=== PATIENT | female | born 1950 | race Caucasian/White ===

== ENCOUNTER 2017-06-29 16:29 | Emergency (ER) | payer BC, SELFPAY ==
[2017-06-29 18:23] VITALS: BP 159/82; PULSE 78; RESP 20; TEMP 37.7; O2SAT 99; BMI 60.5
--- NOTE | 2017-06-29 19:02 | HMH.EDUTC ---
[facility] [place] Clinical Impression: Influenza A Disposition: Home, Self-Care Condition on Discharge: Good Instructions: DI for Influenza -- Adult Additional Instructions: Rest, fluids Prescriptions: Brompheniramine/Pseudoephed/Dm [Bromfed DM Cough Syrup 5mL] 5 - 10 ml PO Q4HP PRN 10 Days #240 syrup PRN Reason: Cough methylPREDNISolone [Medrol] 4 mg PO DIRECTED 6 Days #1 tab.ds.pk Oseltamivir Phosphate [Tamiflu 75mg Capsule] 75 mg PO BID 5 Days #10 cap Time of Disposition: 19:05 Medical Decision Making - Medical Records Medical records reviewed: Yes: I reviewed the patient's medical records. Vital Signs: 06/29/17 18:23 Temperature 99.8 F H Temperature Source Oral Pulse Rate [Radial] 78 Respiratory Rate 20 Blood Pressure [Right Arm] 159/82 Blood Pressure Mean [Right Arm] 107 Blood Pressure Source [Right Arm] Automatic Cuff Blood Pressure Position [Right Arm] Sitting 02 Sat by Pulse Oximetry 99 Oxygen Delivery Method Room Air - Lab Data Lab results reviewed: Yes: I reviewed the patient's lab results. - [place] Inquiry Pt receiving controlled substance: No [facility] [place] - General Stated complaint: Body Aches, fever, Cough Time Seen by Provider: 06/29/17 18:02 Mode of Arrival: Ambulatory Source of Information: Patient Limitations: No Limitations HEENT Symptoms (Recalled from RN notes): Yes Resp Symptoms (Recalled from RN notes): Yes Skin Symptoms (Recalled from RN notes): No MS Symptoms (Recalled from RN notes): No Functional Status (Recalled from RN notes): N/A - History of Present Illness Provider Complaint: Body aches, fever, chills with acute onset 11 am this morning. Has been exposed to strep throat. No vomiting or diarrhea. - Related Data Previous Rx's Medication Instructions Recorded Brompheniramine/Pseudoephed/Dm 5 - 10 ml PO Q4HP PRN 10 Days #240 06/29/17 [Bromfed DM Cough Syrup 5mL] syrup Oseltamivir Phosphate [Tamiflu 75 mg PO BID 5 Days #10 cap 06/29/17 75mg Capsule] methylPREDNISolone [Medrol] 4 mg PO DIRECTED 6 Days #1 06/29/17 tab.ds.pk Allergies Allergy/AdvReac Type Severity Reaction Status Date / Time No Known Drug Allergies Allergy Unknown Unverified 05/07/17 14:27 [NKDA] - Worker's Comp Is this a Worker's Comp case?: No Is this an [facility] Worker's Comp?: No Is this a [place] Worker's Comp?: No [facility] History I have reviewed the patient's past medical history: Yes Medical History: Denies:: Cancer, Diabetes Mellitus Type 1, Diabetes Mellitus Type 2, MRSA Amputation: No Fractures: No - *Social History Educational Level: Completed Grade School Alcohol Intake: never - Psychiatric History Expresses thoughts of harming self/others: None Suicide Plan Description: No Plan ROS Obtained: Yes All systems reviewed & no additional complaints - Constitutional Constitutional: Reports body ache, Reports chills, Reports fever(s), Reports malaise Physical Exam - General General appearance: alert, in no apparent distress - Head Head exam: atraumatic, normocephalic, normal inspection - Eye Eye exam: Present: normal appearance, PERRL, EOMI - ENT ENT exam: Present: normal exam, normal oropharynx, mucous membranes moist, TM's normal bilaterally, normal external ear exam - Neck Neck exam: Present: normal inspection, full ROM, trachea midline. Absent: meningismus, lymphadenopathy - Chest Chest inspection: Present: normal inspection, symmetric chest wall rise. Absent: tenderness - Respiratory Respiratory exam: Present: normal lung sounds bilaterally. Absent: respiratory distress - Cardiovascular Cardiovascular exam: Present: regular rate, normal rhythm. Absent: JVD - Abdominal Exam Abdominal exam: Present: soft, normal bowel sounds. Absent: distention, tenderness, guarding - Extremities Exam Extremities exam: Present: normal inspection, full ROM, normal capillary refill. Absent: calf tenderness - Back Exam Back exam: Present:
[2017-06-29 19:05] VITALS: BP 159/82; PULSE 78; RESP 20; TEMP 37.7; O2SAT 99
--- NOTE | 2017-06-29 19:05 | ED_ITS ---
[facility] [place] Clinical Impression: Influenza A Disposition: Home, Self-Care Condition on Discharge: Good Instructions: DI for Influenza -- Adult Additional Instructions: Rest, fluids Prescriptions: Brompheniramine/Pseudoephed/Dm [Bromfed DM Cough Syrup 5mL] 5 - 10 ml PO Q4HP PRN 10 Days #240 syrup PRN Reason: Cough methylPREDNISolone [Medrol] 4 mg PO DIRECTED 6 Days #1 tab.ds.pk Oseltamivir Phosphate [Tamiflu 75mg Capsule] 75 mg PO BID 5 Days #10 cap Time of Disposition: 19:05 Medical Decision Making - Medical Records Medical records reviewed: Yes: I reviewed the patient's medical records. Vital Signs: 06/29/17 18:23 Temperature 99.8 F H Temperature Source Oral Pulse Rate [Radial] 78 Respiratory Rate 20 Blood Pressure [Right Arm] 159/82 Blood Pressure Mean [Right Arm] 107 Blood Pressure Source [Right Arm] Automatic Cuff Blood Pressure Position [Right Arm] Sitting 02 Sat by Pulse Oximetry 99 Oxygen Delivery Method Room Air - Lab Data Lab results reviewed: Yes: I reviewed the patient's lab results. - [place] Inquiry Pt receiving controlled substance: No [facility] [place] HPI - General Stated complaint: Body Aches, fever, Cough Time Seen by Provider: 06/29/17 18:02 Mode of Arrival: Ambulatory Source of Information: Patient Limitations: No Limitations HEENT Symptoms (Recalled from RN notes): Yes Resp Symptoms (Recalled from RN notes): Yes Skin Symptoms (Recalled from RN notes): No MS Symptoms (Recalled from RN notes): No Functional Status (Recalled from RN notes): N/A - History of Present Illness Provider Complaint: Body aches, fever, chills with acute onset 11 am this morning. Has been exposed to strep throat. No vomiting or diarrhea. - Related Data Previous Rx's Medication Instructions Recorded Brompheniramine/Pseudoephed/Dm 5 - 10 ml PO Q4HP PRN 10 Days #240 06/29/17 [Bromfed DM Cough Syrup 5mL] syrup Oseltamivir Phosphate [Tamiflu 75 mg PO BID 5 Days #10 cap 06/29/17 75mg Capsule] methylPREDNISolone [Medrol] 4 mg PO DIRECTED 6 Days #1 06/29/17 tab.ds.pk Allergies Allergy/AdvReac Type Severity Reaction Status Date / Time No Known Drug Allergies Allergy Unknown Unverified 05/07/17 14:27 [NKDA] - Worker's Comp Is this a Worker's Comp case?: No Is this an [facility] Worker's Comp?: No Is this a [place] Worker's Comp?: No [facility] History I have reviewed the patient's past medical history: Yes Medical History: Denies:: Cancer, Diabetes Mellitus Type 1, Diabetes Mellitus Type 2, MRSA Amputation: No Fractures: No - *Social History Educational Level: Completed Grade School Alcohol Intake: never - Psychiatric History Expresses thoughts of harming self/others: None Suicide Plan Description: No Plan ROS Obtained: Yes All systems reviewed & no additional complaints - Constitutional Constitutional: Reports body ache, Reports chills, Reports fever(s), Reports malaise Physical Exam - General General appearance: alert, in no apparent distress - Head Head exam: atraumatic, normocephalic, normal inspection - Eye Eye exam: Present: normal appearance, PERRL, EOMI - ENT ENT exam: Present: normal exam, normal oropharynx, mucous membranes moist, TM's normal bilaterally, normal external ear exam - Neck Nec
[2017-06-29 20:41] LABS: UTC Strep Screen (Rapid) Negative (Negative)
[2017-06-29 20:44] LABS: UTC Influenza A Antigen Positive (Negative); UTC Influenza B Antigen Negative (Negative)
== END 2017-06-29 19:07 | disposition home or self-care (01) ==
PROVIDERS: Emergency Provider Physician Assistant; Family Provider Family Medicine
DX: J10.1 Influenza due to other identified influenza virus with other respiratory manifestations (principal)
CPT/HCPCS: 87804; 87880; 99202

== ENCOUNTER → 2018-11-17 08:18 | Outpatient (CLI) | payer MEDICARE, BC, SELFPAY ==
--- NOTE | 2018-11-17 08:22 | MM_ITS ---
MM Dig screening mamm BI w/CAD CAD Screening COMPARISON: Digital mammograms with CAD 03/11/2012 INDICATION: There is no personal or family history of breast cancer TECHNIQUE: Standard CC and MLO images were obtained. R2 CAD reviewed. FINDINGS: The breasts are composed primarily of fat with minimal scattered fibroglandular densities in each breast. There are couple benign-appearing calcifications in each breast. There is no suspicious lesion and there are no suspicious microcalcifications. IMPRESSION: Fibrofatty parenchyma with no suspicious lesion seen BI-RADS Category: 2 Benign Finding(s) RECOMMENDED FOLLOW-UP: 1YR - 1 YEAR FOLLOW-UP (A letter has been sent to the patient regarding results of the study.)
== END ==
PROVIDERS: PCP Family Medicine; Visit Provider Family Medicine
DX: Z12.31 Encounter for screening mammogram for malignant neoplasm of breast (principal)
CPT/HCPCS: 77067

== ENCOUNTER 2020-04-13 09:51 | Outpatient (RCR) | payer MEDICARE, BC, SELFPAY ==
--- NOTE | 2020-04-13 14:55 | HMH.SLDYSPHA ---
Speech & Language Evaluation Speech/Language Dysphagia Evaluation Start: 04/13/20 11:22 Freq: ONCE Status: Active Protocol: Document 04/13/20 11:22 CMAY (Rec: 04/13/20 11:59 CMAY [id number]) Dysphagia Assess/Goals/Plan Assessment Date of Evaluation: 04/13/20 Evaluation Type Initial Certification Assessment/Problems Dysphagia Does Patient Qualify for Service Yes Qualify/Failure Comment Patient may qualify for ST services based on the results of today's evaluation. MBSS will be completed to determine if ST is warranted. Recommendations PHYSICIAN CERTIFICATION: The specified therapy services are required, authorized, and reviewed every 30 days. Diet Recommendations Normal Liquid Type Recommendations Normal/Thin SL Swallow Guidelines Standard Aspiration Prec. Dysphagia Swallow Precautions/Strategies Sitting Upright (90 deg),Small Bites and Sips Comment MBSS recommended. Plan Pt/Guardian verbally ack understanding Yes of dx/prognosis/goals G -code Required No Education Instructions provided Education provided to patient regarding recommended strategies to utilize include sitting upright at 90 degree angle for intake, remaining upright for at least 30 minutes following intake, taking small bites/sips, and liquid washes following trials of sticky/grainy foods. Pt/Caregiver able to recall information Able to recall/restate Reinforcement needed No Speech & Language HPI Language [place] Lang/Spoken in Home Estonian Therapy History Seen by other SL therapists No Other Specialists? Yes Who/When/Recommendations ENT approximately 30 years ago General Information General Current Food Consistancy Regular,Thin Liquids Dentition Good Dentition Oxygen Status Room Air Facial Symmetry Symmetrical Ability to Follow Directions Excellent Communication Ability No Impairment Dysphagia:Food Presentation Evaluation Food Type Pureed,Mechanical Soft,Regular ,Liquid,Pudding,Other Normal/Thin Liquid Response Coughing after swallow,Clears throat Pudding Consistency Liquid Response Residual on tongue Dysphagia Evaluation Pureed Food Residual on tongue,Clears Behavior Response throat Dysphagia Evaluation Mechanical Soft Residual on
== END 2020-04-13 09:55 | disposition home or self-care (01) ==
LOC: ST 09:51
PROVIDERS: PCP Family Medicine; Visit Provider Family Medicine
DX: R13.13 Dysphagia, pharyngeal phase (principal)
CPT/HCPCS: 92610

== ENCOUNTER → 2020-04-25 10:46 | Outpatient (CLI) | payer MEDICARE, BC, SELFPAY ==
--- NOTE | 2020-04-25 10:49 | FL_ITS ---
PROCEDURE: FL BARIUM SWALLOW MODIFIED CLINICAL INDICATION: DYSPHAGIA,PHARYNGEAL PHASE COMPARISON: No exams were available for comparison TECHNIQUE: Patient administered varying consistencies of barium contrast, while viewed in lateral position under real-time fluoroscopy with cine recording. FLUOROSCOPY TIME:1 minutes and 52 seconds The study was performed in conjunction with speech pathologist. Please see that report & recommendations. FINDINGS: Patient was given varying consistencies of barium. No penetration or aspiration is evident. Please see speech pathology report for recommendations.. IMPRESSION: Unremarkable modified barium swallow. Please see speech pathologist report and recommendations. Dictated by: Andrew Buenrostro MD 04/28/2020 11:28 Andrew Buenrostro MD in [place] 04/28/2020 11:28
--- NOTE | 2020-04-25 13:16 | HMH.SLMBS2 ---
Speech & Language Evaluation Speech/Language Mod Barium Swallow Start: 04/25/20 12:44 Freq: once Status: Complete Protocol: Document 04/25/20 12:44 HANNA (Rec: 04/25/20 13:16 HANNA [id number]) General Information General Current Food Consistancy Regular,Thin Liquids Dentition Good Dentition Oxygen Status Room Air Facial Symmetry Symmetrical Patient Orientation Person,Place,Time,Situation Ability to Follow Directions Excellent Communication Ability No Impairment MBS Recommendations Diet Dietary Recommendations Regular,Thin Liquids Treatment/Strategies Treatment Recommendation Pharyngeal Resistive Exer, Compens. Strategy Educat. Strategy/Precaution Recommend Sitting Upright (90 deg),Small Bites and Sips,Alternate Liquids/Solids Mod Barium Swallow Impressions Summary and Impressions Oral Phase Impression No Impairment (WFL) Oral Phase Summary Ms. Rojas was given the following consistencies: thins via straw and open cup, pudding, mechanical soft, regular, mixed, and pill with thin wash. No oral phase impairments were noted. Pharyngeal Phase Impression Minimal Impairment Pharyngeal Phase Summary Flash penetration noted with large volume of thins during pill intake. Speech/Language MBS Assessment/Goals/Plan Assessment Date of Evaluation: 04/25/20 Evaluation Type Initial Certification Assessment/Problems Dysphagia Does Patient Qualify for Service No Qualify/Failure Comment Ms. Rojas was given compensatory strategies and laryngeal elevation exercises to promote increase in laryngeal strength. Recommendations PHYSICIAN CERTIFICATION: The specified therapy services are required, authorized, and reviewed every 30 days. Diet Recommendations Normal Liquid Type Recommendations Normal/Thin Plan Pt/Guardian verbally ack understanding Yes of dx/prognosis/goals G -code Required No Mod Barium Swallow Setup Exam Setup Radiologist Andrew Buenrostro Level of Consciousness Awake,Alert,Appropriate Position (degrees) 90 Mod Barium Swallow-Lat View Textures Lateral View Food Presentation Thin Liquid via Cup,Thin Liquid via Straw,Ground Food- Regular,Barium Tablet,Regular
== END ==
PROVIDERS: PCP Family Medicine; Visit Provider Family Medicine
DX: R13.13 Dysphagia, pharyngeal phase (principal)
CPT/HCPCS: 70371; 92611

== ENCOUNTER → 2022-01-08 12:56 | Outpatient (CLI) | payer MEDICARE, SELFPAY | PROVIDERS: PCP Nurse Practitioner Family; Visit Provider Nurse Practitioner Family | DX: Z20.822 Contact with and (suspected) exposure to COVID-19 (principal); R05.1 Acute cough | CPT/HCPCS: C9803; U0003; U0005 ==

== ENCOUNTER → 2022-02-08 10:47 | Outpatient (CLI) | payer MEDICARE, BC, SELFPAY ==
--- NOTE | 2022-02-08 10:51 | MM_ITS ---
PROCEDURE INFORMATION: Exam: MG Bilateral Screening 3D Mammography Exam date and time: 02/08/2022 10:49 AM Age: 71 years old Clinical indication: Screening mammogram TECHNIQUE: Imaging protocol: Bilateral Screening tomosynthesis and 2D mammography including computer-aided detection (CAD) when performed. COMPARISON: 1. MG DIG MAMM-SCREEN LEONCIO 11/17/2018 8:38 AM 2. MG DMSB DIGITAL MAMM-SCREEN BILATERAL 03/11/2012 4:09 PM 3. MG DMSB DIGITAL MAMM-SCREEN BILATERAL 03/07/2011 8:12 AM 4. MG DIGMAMMDX MAMMOGRAM DX-ROBOTICS TESTING TECHNICIAN N/C 07/19/2009 8:41 AM FINDINGS: MAMMOGRAPHY: Breast composition: There are scattered areas of fibroglandular density. Mass: None. Architectural distortion: No new or suspicious architectural distortion. Calcifications: No new or suspicious calcifications are present Asymmetric density: No new or suspicious asymmetric density is present Skin thickening: None. Axillary adenopathy: None. IMPRESSION: No mammographic evidence of malignancy. Recommend annual screening mammography unless otherwise clinically indicated. ASSESSMENT: BI-RADS category 1: Negative
== END ==
PROVIDERS: PCP Nurse Practitioner Family; Visit Provider Obstetrics & Gynecology Gynecology
DX: Z12.31 Encounter for screening mammogram for malignant neoplasm of breast (principal)
CPT/HCPCS: 77063; 77067

== ENCOUNTER → 2022-02-15 08:48 | Outpatient (CLI) | payer MEDICARE, BC, SELFPAY ==
--- NOTE | 2022-02-15 08:51 | XR_ITS ---
FINAL REPORT TECHNIQUE: Bone mineral density was calculated of the lumbar spine and hip. CLINICAL HISTORY: post menopausal FINDINGS: DEXA BONE DENSITY AXIAL SKELETON Using L1-4, the bone mineral density of the spine is 1.086 g/cm2, corresponding to T-score of 0.4. Using the left hip, the bone mineral density of the femoral neck is 0.925 g/cm2, corresponding to a T-score of -0.1. NOTE: T-score: Standard deviation compared with peak bone mass of young adult mean. *Following the recommendations of the International Society of Bone densitometry, classification of hip BMD is based on the lower of two T-scores; total hip or femoral neck. IMPRESSION: Normal bone mineral density of the lumbar spine and hip. FRAX 10 year fracture risk is 0.8% for a hip fracture and 8.4% for a major osteoporotic fracture. Reviewed, Interpreted and Dictated by Bautista Reynolds MD Transcribed by Farideh Cuadra Authenticated and [facility]
== END ==
PROVIDERS: PCP Nurse Practitioner Family; Visit Provider Nurse Practitioner Family
DX: Z78.0 Asymptomatic menopausal state (principal)
CPT/HCPCS: 77080

== ENCOUNTER → 2022-03-14 14:03 | Outpatient (CLI) | payer MEDICARE, BC, SELFPAY ==
--- NOTE | 2022-03-14 14:08 | XR_ITS ---
FINAL REPORT CLINICAL HISTORY: foot pain FINDINGS: Right foot Three views were obtained. There is no acute fracture or dislocation. There are mild degenerative changes. No soft tissue abnormality is identified. IMPRESSION: No acute process. Reviewed, Interpreted and Dictated by Joseph Jones III, MD Transcribed by Sho Dove Authenticated and [facility]
--- NOTE | 2022-03-14 14:08 | XR_ITS ---
FINAL REPORT CLINICAL HISTORY: foot pain FINDINGS: Left foot Three views were obtained. There is no acute fracture or dislocation. There are mild degenerative changes. There is a plantar calcaneal spur. No soft tissue abnormality is identified. IMPRESSION: No acute process. Reviewed, Interpreted and Dictated by Joseph Jones III, MD Transcribed by Sho Dove Authenticated and [facility]
== END ==
PROVIDERS: PCP Nurse Practitioner Family; Visit Provider Nurse Practitioner Family
DX: M79.672 Pain in left foot (principal); M79.671 Pain in right foot
CPT/HCPCS: 73630

== ENCOUNTER → 2022-03-24 10:10 | Outpatient (CLI) | payer MEDICARE, BC, SELFPAY ==
--- NOTE | 2022-03-24 10:11 | MR_ITS ---
FINAL REPORT CLINICAL HISTORY: CHRONIC ANTERIOR TO LATERAL ANKLE PAIN. NKI. PT STATES FEELS LIKE THEIR IS KNOTS IN HER FOOT/ ANKLE. PAIN WITH WALKING. FINDINGS: Multiplanar MR imaging of the left ankle was performed without contrast. There is mild fusiform enlargement of the distal Achilles tendon. The plantar fascia is intact. There is mild linear signal in the substance of the tendon consistent with partial tear. The bony structures are intact without evidence of fracture, bone bruise or marrow edema. A small osteochondral lesion in the lateral talar dome measures 3 mm. The ligaments are intact without evidence of injury. The remaining tendons about the ankle are intact. No significant joint effusion is seen. The musculature is intact. There is no evidence of soft tissue mass or cyst. There is mild subcutaneous soft tissue edema particularly over the medial foot. 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 Small osteochondral lesion in the lateral talar dome. Reviewed, Interpreted and Dictated by Donato Martino MD Transcribed by Miek Smallwood Authenticated and . [facility]
--- NOTE | 2022-03-24 10:11 | MR_ITS ---
FINAL REPORT CLINICAL HISTORY: CHRONIC ANTERIOR TO LATERAL FOOT PAIN. NKI. PT STATES FEELS LIKE THEIR IS KNOTS IN HER FOOT. PAIN WITH WALKING. FINDINGS: Multiplanar MR imaging of the left foot was performed without contrast. The bony structures are intact without evidence of fracture, bone bruise or marrow edema. The flexor and extensor tendons are intact. The musculature is intact. The plantar aponeurosis is intact. No soft tissue mass or cyst is identified. There is mild soft tissue edema over the dorsum of the foot. IMPRESSION: Mild soft tissue edema over the dorsum of the foot. Reviewed, Interpreted and Dictated by Donato Martino MD Transcribed by Mike Smallwood Authenticated and [facility]
== END ==
PROVIDERS: PCP Nurse Practitioner Family; Visit Provider Nurse Practitioner Family
DX: S93.402A Sprain of unspecified ligament of left ankle, initial encounter (principal); M79.672 Pain in left foot; R60.0 Localized edema
CPT/HCPCS: 73718; 73721

== ENCOUNTER 2022-05-02 10:00 | Outpatient (RCR) | payer MEDICARE, BC, SELFPAY ==
--- NOTE | 2022-02-12 10:56 | HMH.PTOPEV ---
PT Outpatient Evaluation Rehab PT Outpatient Evaluation Start: 02/12/22 10:41 Freq: Status: Active Protocol: Document 02/12/22 10:41 MILE (Rec: 02/12/22 10:56 MILE [id number]) E-signed By Luiz Phillips, PT Outpatient Therapy Subjective History Subjective History Pt reports h/o chronic left foot/ankle swelling for years, and reports left foot pain for a couple months. Pt reports localized medial aspect left mid foot area pain , as well as referred pain into medial aspect left aguirre/ calf area. Pt reports recent purchase and use of custom orthotics and walking sneakers have improved left foot pain severity. Chief Complaint Pain,Swelling Symptom Type Ache,Dull Symptoms Relieved By Rest/Positioning Symptoms Aggravated By Standing,Physical Activity, Walking Prior Functional Limitations Housework,Standing,Walking Current Functional Limitations Housework,Standing,Walking Symptom Description Constant but Variable Level of pain today (0-10) 4 Pain scale - at its best (0-10) 3 Pain scale - at its worst (0-10) 6 Ankle/Foot Eval Gait Observation General Gait Pattern Observation Antalgic Gait Palpation Tenderness left Ankle/Foot Palpation Findings Tenderness Ankle/Foot Palpation Overall Comment 3/4 post. tib insertion, 3/4 post. tib mm belly and tendon ROM Ankle/Foot Dorsiflexion w/Knee Extended 0-11 Active Range Motion (degrees) Ankle/Foot Plantar Flexion Active Range 0-50 of Motion (degrees) Ankle/Foot Eversion Active Range of 0-11 Motion (degrees) Ankle/Foot Inversion Active Range of 0-45 Motion (degrees) MMT Ankle Dorsiflexion Strength Grade 4 Good Ankle Plantarflexion Strength Grade 4 Good Foot Eversion Strength Grade 4 Good Foot Inversion Strength Grade 4- Good- Outpatient Therapy Assessment Impairments Problems/Impairmments Palpation Tenderness,Impaired Range of Motion,Impaired Strength,Impaired Gait Pattern ,Impaired Walking,Impaired Standing,Impaired Household Care,Increased Edema, Subjective C/O Pain,Impaired Self Care/Self Management Prognosis Rehab Potential Good Clinical Impression Consisten
--- NOTE | 2022-03-27 13:55 | HMH.RHREAS ---
Rehab Reassessment Rehab OP Re-assessment Start: 03/27/22 13:46 Freq: Status: Active Protocol: Document 03/27/22 13:46 MILE (Rec: 03/27/22 13:54 MILE [id number]) E-signed By Luiz Phillips, PT Rehab Re-assessment Subjective Subjective Pt reports 80% improvement in left ankle/LE swelling, pain, and overall function since I eval, and also reports 0/10 left LE pain on VAS this pm Objective Objective Notes AROM: LEFT ANKLE DF 0-11, PF 0 -51, INV 0-55, EVR 0-21 MMT: LEFT ANKLE DF 4+-5/5, PF 5/5, INV 4+/5, EVR 4+/5 TTP: POST TIB TENDON LEFT 06/23 Assessment Progress Assessment Progressing as Expected Assessment Notes SIGNIFICANT IMPROVEMENT IN ROM , STRENGTH, AND TTP Patient goals met STG'S 01/26 LTG'S 11/25 Goals Not Met LTG'S 06/28 Plan Plan Pt to continue w/skilled P.T. to make further improvements in left ankle swelling (see CLINICAL SERVICES MANAGER notes), strength, and TTP to allow for optimal function Frequency of Therapy 1-2x/wk Duration of therapy 2-4wks Time and Billing Re-Eval Time 12 Re-Eval Billing Units 1 PHYSICIAN CERTIFICATION: I certify the specified therapy services for Obdulia Rojas (Meg) are required, authorized, and reviewed every 30 days.
== END 2022-05-02 10:05 | disposition home or self-care (01) ==
LOC: PT 10:00
PROVIDERS: PCP Nurse Practitioner Family; Visit Provider Nurse Practitioner Family
DX: M79.672 Pain in left foot (principal)
CPT/HCPCS: 97010; 97014; 97035; 97110; 97140; 97163; 97164; 97760; G0283

== ENCOUNTER 2024-07-13 09:22 | Outpatient (CLI) | payer MEDICARE, BC, SELFPAY ==
--- NOTE | 2024-07-13 09:26 | XR_ITS ---
FINAL REPORT TECHNIQUE: Bone mineral density was calculated of the lumbar spine and hip. CLINICAL HISTORY: SCREENING COMPARISON: None FINDINGS: Using L1-4, the bone mineral density of the spine is 1.104 g/cm2, corresponding to T-score of 0.5. Using the left hip, the bone mineral density of the femoral neck is 0.850 g/cm2, corresponding to a T-score of -0.8. Utilizing the right hip, the bone mineral density of the femoral neck is 0.691 g/cm?, corresponding to a T-score of -1.4. NOTE: T-score: Standard deviation compared with peak bone mass of young adult mean. *Following the recommendations of the International Society of Bone densitometry, classification of hip BMD is based on the lower of two T-scores; total hip or femoral neck. IMPRESSION: Diminished bone mineral density of the right hip consistent with osteopenia. Normal bone mineral density of the lumbar spine and left hip. Reviewed, Interpreted and Dictated by Joseph Jones III, MD Transcribed by Rasheeda Cohen Authenticated and [facility]
--- NOTE | 2024-07-13 09:26 | MM_ITS ---
PROCEDURE INFORMATION: Exam: MG Bilateral Screening 3D Mammography Exam date and time: 07/13/2024 9:45 AM Age: 73 years old Clinical indication: Screening examination TECHNIQUE: Imaging protocol: Bilateral Screening tomosynthesis and 2D mammography including computer-aided detection (CAD) when performed. COMPARISON: 1. MG MM DIG SCREENING MAMM BI W/CAD 02/08/2022 10:49 AM 2. MG DIG MAMM-SCREEN LEONCIO 11/17/2018 8:38 AM FINDINGS: MAMMOGRAPHY: Breast composition: There are scattered areas of fibroglandular density. Mass: Indistinct 0.7 cm mass in the right breast lower inner quadrant, approximately 5 cm from the nipple. Questionable indistinct mass measuring 1.3 cm in the right breast upper outer quadrant, best seen on the craniocaudal projection, approximately 5 cm from the nipple. Architectural distortion: None. Calcifications: No suspicious calcifications. Asymmetric density: None. Skin thickening: None. Axillary adenopathy: None. IMPRESSION: Patient to be recalled for spot compression views of the right breast in the CC and MLO projections, a full 90 degree lateral view, and right breast ultrasound for further evaluation of 2 right breast masses, in the lower inner quadrant and in the upper-outer quadrant. ASSESSMENT: BI-RADS Category 0: Incomplete- Need Additional Imaging Evaluation.
== END 2024-07-13 23:59 | disposition home or self-care (01) ==
LOC: RAD 09:24
PROVIDERS: PCP Nurse Practitioner Family; Visit Provider Nurse Practitioner Family
DX: Z78.0 Asymptomatic menopausal state (principal); Z12.31 Encounter for screening mammogram for malignant neoplasm of breast; R92.8 Other abnormal and inconclusive findings on diagnostic imaging of breast
CPT/HCPCS: 77063; 77067; 77080

== ENCOUNTER 2024-07-28 13:15 | Outpatient (CLI) | payer MEDICARE, BC, SELFPAY ==
--- NOTE | 2024-07-28 13:22 | MM_ITS ---
PROCEDURE INFORMATION: Exam: US Right Breast, Complete MG Right Diagnostic Breast Tomosynthesis Exam date and time: 07/28/2024 1:45 PM Age: 73 years old Clinical indication: Recall on the basis of the screening mammogram 07/13/2024 for: Indistinct 0.7 cm mass in the right breast lower inner quadrant, approximately 5 cm from the nipple. Questionable indistinct mass measuring 1.3 cm in the right breast upper outer quadrant, best seen on the craniocaudal projection, approximately 5 cm from the nipple. TECHNIQUE: Imaging protocol: Complete ultrasound of all four quadrants of the right breast and the retroareolar regions, including ultrasound of the axilla when performed. Right Diagnostic tomosynthesis and 2D mammography including computer-aided detection (CAD) when performed. Unilateral or bilateral exam. COMPARISON: MG MM DIG SCREENING MAMM BI W/CAD 07/13/2024 9:45 AM FINDINGS: MAMMOGRAPHY: Breast composition: There are scattered areas of fibroglandular density based on the most recent screening mammogram report. Breast mammogram findings: Spot compression in the craniocaudad view shows: in the inner breast, middle 3rd, and irregular 0.8 cm asymmetry with probable architectural distortion; and in the outer breast middle 3rd, irregular 1.3 cm asymmetry with questionable architectural distortion. Spot compression in the MLO upper breast demonstrates no persistent findings. No spot compression in the MLO lower breast, though 2D true lateral does not demonstrate focal findings to correspond to the abnormalities in the craniocaudad projection. ULTRASOUND: Breast ultrasound findings: Right sonography, all 4 quadrants, retroareolar and axilla. At 4 o'clock 5 cm from the nipple, irregular solid mass which is taller than wide measuring 0.5 x 0.4 x 0.5 cm with related Doppler flow which appears to correspond to the mammographic medial asymmetry with architectural distortion. At 10 o'clock 5 cm from the nipple, lobulated hypoechoic mass with thin avascular septations measuring 0.8 x 0.4 x 0.6 cm which may correspond to the mammographic lateral asymmetry. No other sonographic findings demonstrated. Sonographically unremarkable axillary lymph node. IMPRESSION: See comments Highly suspicious mass on the right at 4 o'clock, recommend ultrasound-guided biopsy with correlation to ensure that sonographically placed clip corresponds to the mammographic finding. Recommend ultrasound guided biopsy of probable complicated sonographic cyst at 10 o'clock, with clip placement and assessing whether the sonographic finding corresponds to the mammographic asymmetry in the lateral breast. If not, advise additional mammographic spot compression in MLO and consideration for adding an MRI (after above recommended biopsies). ASSESSMENT: BI-RADS Category 5: Highly suggestive of malignancy.
== END 2024-07-28 23:59 | disposition home or self-care (01) ==
LOC: RAD 13:17
PROVIDERS: PCP Nurse Practitioner Family; Visit Provider Nurse Practitioner Family
DX: R92.8 Other abnormal and inconclusive findings on diagnostic imaging of breast (principal); N63.14 Unspecified lump in the right breast, lower inner quadrant; N63.11 Unspecified lump in the right breast, upper outer quadrant
CPT/HCPCS: 76641; 77061; 77065; G0279

== ENCOUNTER 2024-08-10 09:01 | Outpatient (CLI) | payer MEDICARE, BC, SELFPAY ==
--- NOTE | 2024-08-10 09:05 | US_ITS ---
FINAL REPORT CLINICAL HISTORY: ABNORMAL MAMM MASS - DR.ALEX SCHMIDT - RT BREAST - 4:00 AND 10:00 MAMMOTOME USED FOR BOTH AREAS FINDINGS: ULTRASOUND-GUIDED RIGHT BREAST CORE BIOPSY, biopsy 1 of 2 with lesion located at 4:00. HISTORY: Abnormal mammogram and ultrasound right breast TECHNIQUE: The right breast was prepped in a routine sterile fashion and locally anesthetized with 1% lidocaine. An 11-gauge vacuum-assisted hand-held device was utilized. The needle was positioned posterior to the lesion. Multiple vacuum assisted core samples were obtained. Lesion was noted to be significantly smaller following biopsy. A biopsy marker clip was deployed in satisfactory position. A post biopsy mammogram was performed and dictated separately. Limited postbiopsy images showed no evidence of significant hemorrhage. Marker clip is noted to be in satisfactory position. Procedure was well tolerated. IMPRESSION: 1. Technically successful guided vacuum assisted core biopsy of right breast lesion as above. 2. Biopsy marker clip deployed Histopathology results reveal invasive lobular carcinoma.. Pathology is concordant with mammographic findings. Medical and surgical oncologic follow-up is recommended. ULTRASOUND-GUIDED RIGHT BREAST CORE BIOPSY, biopsy 2 of 2 directed toward a lesion at 10:00. HISTORY: Abnormal ultrasound and mammogram TECHNIQUE: The right breast was prepped in a routine sterile fashion and locally anesthetized with 1% lidocaine. An 11-gauge vacuum-assisted hand-held device was utilized. The needle was positioned posterior to the lesion. Multiple vacuum assisted core samples were obtained. Lesion was noted to be significantly smaller following biopsy. A biopsy marker clip was deployed in satisfactory position. A post biopsy mammogram was performed and dictated separately. Limited postbiopsy images showed no evidence of significant hemorrhage. Marker clip is noted to be in satisfactory position. Procedure was well tolerated. IMPRESSION: 1. Technically successful guided vacuum assisted core biopsy of right breast lesion as above. 2. Biopsy marker clip deployed Histopathology results reveal proliferative fibrocystic changes without atypia or carcinoma. Pathology is concordant with mammographic findings. Recommendation: Although this lesion at 10:00 would typically undergo 6-month imaging follow-up, patient will need medical and surgical oncologic treatment for the separate biopsied lesion located at 4:00. Ultimately a follow-up mammogram and ultrasound is recommended for continued surveillance of the 10:00 lesion in 6 to 12 months if patient undergoes breast conservation treatment. Authenticated and ERN
--- NOTE | 2024-08-10 09:06 | MM_ITS ---
FINAL REPORT CLINICAL HISTORY: S/P BIOPSY , CLIP PLACEMENT FINDINGS: MAMMOGRAM RIGHT 2D TECHNIQUE: Standard digital 2D views COMPARISON: 07/28/2024 DENSITY: There are scattered areas of fibroglandular density FINDINGS: Post biopsy marker clips are noted in satisfactory position. Postbiopsy changes are noted. The biopsy marker clip in the right lower outer quadrant corresponds to lesion which was demonstrated to be positive on pathology. IMPRESSION: Biopsy marker clips in good position ASSESSMENT: Post procedure mammogram for marker placement Medical and surgical oncologic follow-up will be needed for management of lesion located at 4:00 given findings of invasive lobular carcinoma. Although the lesion at 10:00 would typically undergo 6-month imaging follow-up, patient will need medical and surgical oncologic treatment for the separate biopsied lesion located at 4:00. Ultimately a follow-up mammogram and ultrasound is recommended for continued surveillance of the 10:00 lesion in 6 to 12 months if patient undergoes breast conservation treatment. Authenticated and ERN
== END 2024-08-10 23:59 | disposition home or self-care (01) ==
LOC: RAD 09:02
PROVIDERS: PCP Nurse Practitioner Family; Visit Provider Nurse Practitioner Family
DX: R92.8 Other abnormal and inconclusive findings on diagnostic imaging of breast (principal); N63.11 Unspecified lump in the right breast, upper outer quadrant; N63.14 Unspecified lump in the right breast, lower inner quadrant
CPT/HCPCS: 19083; 77065; C2618

== ENCOUNTER 2025-02-15 09:47 | Outpatient (CLI) | payer MEDICARE, BC, SELFPAY ==
--- OUTSIDE RECORDS SUMMARY | 2024-07-13 05:00 | XMS_ITS ---
Author Organization [facility] Address [address] [facility] [address] [facility] [address] [place] [address] Care Team Providers Care Kitchen Porter Name Role Phone Maranda Ann Primary Care Provider MARANDA ANN Unavailable Unavaila ble REASON FOR VISIT Labs Encounters Encounter Location Date Provider Diagnosis [facility] [address] [place] [address] [place] [address] 07/13/2024 Maranda Ann Plan Of Treatment No Information Progress Notes * Rosana ELLISDOB:1950 (74 yo F)Acc No.[id number]:07/13/2024 LABS Patient: Rosana PRINCE Provider: REFUGIO Mcdonald :1950 A ge:73 Y S ex:Female Date:07/13/2024 Address:[address] [place], [id number] Subjective: * Chief Complaints: * 1 . Labs. * Medical History: Objective: * Vitals: Assessment: Plan: * Treatment: * * Electronic signature of Heidi Ann APRN on 02/15/2025 at 09:51 AM EDT Sign off status: Pending * Provider: REFUGIO Mcdonald Date: 0 07/13/2024 Generated for Printi ng/Faxing/eTransmitting on: 0 02/15/2025 09:51 AM EDT
--- OUTSIDE RECORDS SUMMARY | 2024-08-22 17:30 | XMS_ITS ---
Author Organization [facility] Address [address] [facility] [address] [address] Care Team Providers Care Wardrobe Coordinator Name Role Phone Maranda Ann Primary Care Provider MARANDA ANN Unavailable Unavaila ble Migration, Provider Unavailable Unavailable REAS[facility]ISIT [facility] Conversion Encounter Medications Medication SIG (Take, Route, Frequency, Duration) Notes Start Date End Date Status Lisinopril 10 MG 1 tab(s) orally once a day; Duration: 90 days Active Venlafaxine HCl ER 75 MG 1 cap(s) orally once a day; Duration: 90 days Active Encounters Encounter Location Date Provider Diagnosis [facility]hnaz [facility]ON [address] [place] [address] 08/22/2024 Provider Migration HTN (hypertension), benign I10 and PIERRE (generalized anxiety disorder) F41.1 Assessments Encounter Date Diagnosis (ICD Code) Assessment Notes Treatment Notes Treatment Clinical Notes Section Notes 08/22/2024 HTN (hypertension), benign (ICD-10 - I10) 08/22/2024 PIERRE (generalized anxiety disorder) (ICD-10 - F41.1) Plan Of Treatment Medication Medication Name Sig Start Date Stop Date Notes Lisinopril 10 MG 1 tab(s) orally once a day; Duration: 90 days Venlafaxine HCl ER 75 MG 1 cap(s) orally once a day; Duration: 90 days Progress Notes * Rosana ELLISDOB:1950 (74 yo F)Acc No.[id number]:08/22/2024 Patient: Rosana PRINCE Provider: Mago horne Migration :1950 A ge:73 Y S ex:Female Date:08/22/2024 Address:[address] [place], [place] [id number] Pcp:Maranda Ann Subjective: * Chief Complaints: * 1 . [facility] Conversion Encounter. * Medical History: Objective: * Vitals: Assessment: * Assessment: 1. H TN (hypertension), benign - I10 2 . G AD (generalized anxiety disorder) - F41.1 Plan: * Treatment: 2. G AD (generalized anxiety disorder) Refill Venlafaxine HCl ER Capsule Extended Release 24 Hour, 75 MG, 1 cap(s), orally, once a day, 90 days, 90, Refills 3. * * Electronic signature of Prov ider Migration on 02/15/2025 at 09:50 AM EDT Sign off status: Pending * Provider: Mago horne Migration Date: 0 08/22/2024 Generated for Arnaud farah/Melina/Georgeitting on: 0 02/15/2025 09:50 AM EDT
--- OUTSIDE RECORDS SUMMARY | 2025-02-15 09:50 | XMS_ITS | Encounter Summary ---
Author Organization Healthcare Address [address] [place] [address] Care Team Providers Care Grouter Helper Name Role Phone Maranda Ann WELDER FITTER Primary Care Provider +1- [phone] Encounter Details Date Type Department Care Team (Late st Contact Info) Description 07/28/2024 Orders Only External Location [address] [place] [address] Maranda Ann, WELDER FITTER [facility] [facility] [address] [place], [place] [id number] Social History Tobacco Use Types Packs/Day Years Used Date Smoking Tobacco: Never Alcohol Use Standard Drinks/Week Comments Yes 0 (1 standard drink = 0.6 oz pur e alcohol) Comments Unknown Sex and Gender Information Value Date Recorded Sex Assigned at Not on file Legal Sex Female 8:01 PM EDT Gender Identity Not on file Sexual Orientation Not on file documented as of this encounter Plan of Treatment Upcoming Encounters Date Type Department Care Team (Late st Contact Info) Description 04/19/2025 8:30 AM EST Appointment [facility] [place] [address] [address] Building [address] [place] [address] 04/19/2025 9:30 AM EST Office Visit [facility] [address] [facility], 2nd [place] [address] Lola Orozco, WELDER FITTER [address] [facility] Valentina Zhouson [address] [address] documented as of this encounter Procedures Procedure Name Priority Date/Time Associated Diagnosis Comments MAMMOGRAPHY OUTSIDE IMAGES UPLOAD 07/28/2024 1:53 PM EDT documented in this encounter Results * Mammography Outside Images Upload (07/28/2024 1:53 PM EDT) Anatomical Region Laterality Modality Mammography 07/28/2024 1:53 PM EDT Maranda Ann APRN IMG BI PROCEDURES Final Re sult documented in this encounter Visit Diagnoses Not on filedocumented in this encounter Care Teams Grouter Helper Relationship Specialty Start Date End Date Maranda Ann APRN [address] [place] [address] [address] [place] [address] PCP - General 08/18/24 documented as of this encounter
--- OUTSIDE RECORDS SUMMARY | 2025-02-15 09:50 | XMS_ITS | Encounter Summary ---
Author Organization [facility] Address [address] [place] [address] Care Team Providers Care Manager Math Name Role Phone MarissaMaranda gr Audelia LÓPEZ Primary Care Provider +1- [phone] Encounter Details Date Type Department Care Team (Late Contact Info) Description 06/22/2018 Orders Only External Location 800 [place] [address] Provider, External Social History Tobacco Use Types Packs/Day Years Used Date Smoking Tobacco: Never Assessed Comments Unknown Sex and Gender Information Value [...] [facility] [place] [address] [facility] [facility] [address] [place] [address] 04/19/2025 9:30 AM EST Office Visit [facility] [address] [facility], 2nd [place] [address] Lola Orozco APRN 800 [facility] [address] [address] documented as of this encounter Procedures Procedure Name Priority Date/Time Associated Diagnosis Comments XR OUTSIDE IMAGES 06/22/2018 2:46 PM EST documented in this encounter Results * XR OUTSIDE IMAGES (06/22/2018 2:46 PM EST) Anatomical Region Laterality Modality Radiographic Tonie ging 06/22/2018 2:46 PM EST us External Provider IMG XR PROCEDURES Final Result documented in this encounter Visit Diagnoses Not on filedocumented in this encounter Care Teams Manager Math Relationship Specialty Start Date End Date Maranda Ann APRN [address] [place] [address] PCP - General 08/18/24 documented as of this encounter
--- OUTSIDE RECORDS SUMMARY | 2025-02-15 09:50 | XMS_ITS | Encounter Summary ---
Author Organization Healthcare Address [address] [place] [address] Care Team Providers Care Brush Machine Setter Name Role Phone Maranda Ann REPLANTING MACHINE CREW Primary Care Provider +1- [phone] Encounter Details Date Type Department Care Team (Late st Contact Info) Description 07/28/2024 Orders Only External Location 800 [place] [address] Maranda Ann, REPLANTING MACHINE CREW [address] [facility] [facility] 36 [place], [place] [id number] Social History Tobacco Use Types Packs/Day Years [...] [facility] [place] [address] [address] Building [address] [place] [address] 04/19/2025 9:30 AM EST Office Visit [facility] [address] [facility], 2nd [place] [address] Lola Orozco, REPLANTING MACHINE CREW 800 [facility] Valentina Zhouson [address] [address] documented as of this encounter Procedures Procedure Name Priority Date/Time Associated Diagnosis Comments US BREAST OUTSIDE IMAGES UPLOAD 07/28/2024 1:45 PM EDT documented in this encounter Results * US Breast Imaging Outside Images Upload (07/28/2024 1:45 PM EDT) Anatomical Region Laterality Modality Mammography 07/28/2024 1:45 PM EDT Maranda Ann APRN IMG BI PROCEDURES Final Re sult documented in this encounter Visit Diagnoses Not on filedocumented in this encounter Care Teams Brush Machine Setter Relationship Specialty Start Date End Date Maranda Ann APRN [address] [place] [address] PCP - General 08/18/24 documented as of this encounter
--- OUTSIDE RECORDS SUMMARY | 2025-02-15 09:51 | XMS_ITS | Encounter Summary ---
Author Organization [facility] Address [address] [place] [address] Care Team Providers Care Dairy Equipment Mechanic Name Role Phone Maranda Ann APRN Primary Care Provider +1- [phone] Reason for Referral * Consultation (Routine) - Closed Specialty Diagnoses / Procedures Referred By Contac t Referred To Contact Medical Oncology / Hematology and Oncology Diagnoses Invasive lobular carcinoma of breast in female Maranda Ann APRN [address] [address] Phone: tel: fax: [facility] [address] [facility], [address]nd [place] [address] Phone: tel: fax: Referral ID Status Reason Start Date Expiration Date V isits Requested Visits Authorized [id number] Closed Specialty Services Required 08/14/2024 02/13/2026 1 1 Encounter Details Date Type Department Care Team (Late st Contact Info) Description 08/14/2024 Community Orders Community Practice 800 [place] [address] Maranda Ann APRN [address] [address] INVASIVE LOBULAR CARCINOMA OF BREAST IN FEMALE (Primary Dx) Social History Tobacco Use Types Packs/Day Years [...] [facility] [address] Valentina Vazquez [facility] 800 [place] [address] 04/19/2025 9:30 AM EST Office Visit [facility] [address] [facility], [address]nd [place] [address] Lola Orozco, BUTCHER HEAD 800 [facility] Valentina Vazquez [facility] [address] [place] [address] Scheduled Referrals Name Type Priority Associated Diagnoses Order Schedule Ambulatory referral to Hematology Oncology/Medical Oncology Outpatient Referral Routine INVASIVE LOBULAR CARCINOMA OF BREAST IN FEMALE Expected: 08/21/2024, Expires: 02/14/2026 documented as of this encounter Visit Diagnoses Diagnosis INVASIVE LOBULAR CARCINOMA OF BREAST IN FEMALE- Primary documented in this encounter Care Teams Dairy Equipment Mechanic Relationship Specialty Start Date End Date Maranda Ann APRN 1210 [facility] 36 [facility] [address] [place] [address] PCP - General 08/18/24 documented as of this encounter
--- OUTSIDE RECORDS SUMMARY | 2025-02-15 09:51 | XMS_ITS | Encounter Summary ---
Author Organization Healthcare Address [address] [place] [address] Care Team Providers Care Foundry Operator Name Role Phone Maranda Ann WHITE WASHER PILER Primary Care Provider +1- [phone] Encounter Details Date Type Department Care Team (Late st Contact Info) Description 07/13/2024 Orders Only External Location 800 [place] [address] Maranda Ann, WHITE WASHER PILER [address] [facility] [address] [place], [place] [phone] Social History Tobacco Use Types Packs/Day Years [...] [facility] [place] [address] [address] [place] [address] 04/19/2025 9:30 AM EST Office Visit [facility] [address] [facility], 2nd [place] [address] Lola Orozco, WHITE WASHER PILER 800 [facility] Valentina Zhouson [address] [address] documented as of this encounter Procedures Procedure Name Priority Date/Time Associated Diagnosis Comments MAMMOGRAPHY OUTSIDE IMAGES UPLOAD 07/13/2024 9:45 AM EST documented in this encounter Results * Mammography Outside Images Upload (07/13/2024 9:45 AM EST) Anatomical Region Laterality Modality Mammography 07/13/2024 9:45 AM EST Maranda Ann APRN IMG BI PROCEDURES Final Re sult documented in this encounter Visit Diagnoses Not on filedocumented in this encounter Care Teams Foundry Operator Relationship Specialty Start Date End Date Maranda Ann APRN [address] [place] [address] PCP - General 08/18/24 documented as of this encounter
--- OUTSIDE RECORDS SUMMARY | 2025-02-15 09:51 | XMS_ITS | Encounter Summary ---
Author Organization [facility] Address [address] [place] [address] Care Team Providers Care Steamer Gum Candy Name Role Phone MarissaMaranda gr Audelia LÓPEZ Primary Care Provider +1- [phone] Encounter Details Date Type Department Care Team (Late Contact Info) Description 08/18/2024 Lab Requisition [facility] 800 [place] [phone] Dianna Villasenor MD 800 [facility] Valentina Vazquez [address] [address] Unspecified lump in unspecified breast Social History Tobacco Use Types Packs/Day Years [...] Encounters Date Type Department Care Team (Late Contact Info) Description 04/19/2025 8:30 AM EST Appointment [facility] [place] [address] Valentina Bob[address]on [facility] 800 [place] [address] 04/19/2025 9:30 AM EST Office Visit [facility] [address] [facility], 2nd [place] [address] Lola Orozco APRN [address] [facility] [address] [place] [address] documented as of this encounter Procedures Procedure Name Priority Date/Time Associated Diagnosis Comments SURGICAL PATHOLOGY CONSULT Routine 08/18/2024 10:38 AM EDT Unspecified lump in unspecified breast documented in this encounter Results * Surgical Pathology Consult (08/18/2024 10:38 AM EDT) Case Report Sugical Pathology Consult Case: [id number] Authorizing Provider: Dianna Villasenor MD Collected: 08/18/2024 1038 Ordering Location: [facility] Lab Received: 08/18/2024 1038 Pathologist: Cara Bowman MD Specimen: Breast, Right, [id number] 08/19/2024 11:51 AM EDT [facility] Final Diagnosis Outside slides Date of collection: 08/10/24 A Right breast (4:00 / mass), needle-core biopsy: - Invasive lobular carcinoma, grade 2 - Microcalcification associated with non-atypical ducts B Right breast (10:00 / mass), needle-core biopsy: - No atypical features identified - Predominantly adipose stroma 08/19/2024 11:51 AM EDT [facility] at 1151 EDT Comment There is a focus of elastosis with a partially surrounding arrangement of lobules that may reflect a radial scar. Outside biomarkers (reviewed): ER positive >95% 3+ [place] positive >95% 3+ Her2/luciano negative (1+) 08/19/2024 11:51 AM EDT [facility] Clinical Information N63.0 - Unspecified lump in unspecified breast [ICD-10-CM] 08/19/2024 11:51 AM EDT [facility] Gross Description A. [id number] Received along with a corresponding pathology report from [facility] Laboratory are 14 slides labeled outside case: [id number] collected on 08/10/2024. 08/19/2024 11:51 AM EDT [facility] Note: A resident was involved in the service. I attest I examined the relevant preparations for the specimens and confirmed the diagnosis or interpretation. 08/19/2024 11:51 AM EDT [facility] Tissue Right breast structure / Unknown 08/18/2024 10:38 AM EDT 08/18/2024 10:38 AM EDT us Dianna Villasenor MD LAB PATHOLOGY ORDERABLES F inal Result [facility] [address] [place] [address] documented in this encounter Visit Diagnoses Diagnosis Unspecified lump in unspecified breast documented in this encounter Care Teams Steamer Gum Candy Relationship Specialty Start Date End Date Maranda Ann APRN [facility] [place] [address] PCP - General 08/18/24 documented as of this encounter
--- OUTSIDE RECORDS SUMMARY | 2025-02-15 09:51 | XMS_ITS | Encounter Summary ---
Author Organization [facility] Address [address] [place] [address] Care Team Providers Care County Engineer Name Role Phone Maranda Ann Audelia LÓPEZ Primary Care Provider +1- [phone] Encounter Details Date Type Department Care Team (Late Contact Info) Description 03/30/2008 Orders Only External Location 800 [place] [address] Radiant, Imaging Upload Social History Tobacco Use Types Packs/Day Years [...] [facility] [place] [address] [address] Vazquez [facility] 800 [place] [address] 04/19/2025 9:30 AM EST Office Visit [facility] [address] [facility], 2nd [place] [address] Lola Orozco APRN [address] [facility] [address] [address] documented as of this encounter Procedures Procedure Name Priority Date/Time Associated Diagnosis Comments MAMMOGRAPHY OUTSIDE IMAGES UPLOAD 03/30/2008 8:41 AM EST documented in this encounter Results * Mammography Outside Images Upload (03/30/2008 8:41 AM EST) Anatomical Region Laterality Modality Mammography 03/30/2008 8:41 AM EST us Imaging Upload Radiant IMG BI PROCEDURES Final R esult documented in this encounter Visit Diagnoses Not on filedocumented in this encounter Care Teams County Engineer Relationship Specialty Start Date End Date Maranda Ann APRN [address] [place] [address] PCP - General 08/18/24 documented as of this encounter
--- OUTSIDE RECORDS SUMMARY | 2025-02-15 09:51 | XMS_ITS | Encounter Summary ---
Author Organization [facility] Address [address] [place] [address] Care Team Providers Care Inset Cutter Name Role Phone MarissaMaranda gr Audelia LÓPEZ Primary Care Provider +1- [phone] Encounter Details Date Type Department Care Team (Late Contact Info) Description 11/17/2018 Orders Only External Location 800 [place] [address] Provider, External Social History Tobacco [...] [facility] [place] [address] Valentina Vazquez [facility] 800 [place] [address] 04/19/2025 9:30 AM EST Office Visit [facility] [address] [facility], 2nd [place] [address] Lola Orozco APRN 800 [facility] [address] [address] documented as of this encounter Procedures Procedure Name Priority Date/Time Associated Diagnosis Comments MAMMOGRAPHY OUTSIDE IMAGES UPLOAD 11/17/2018 8:38 AM EDT documented in this encounter Results * Mammography Outside Images Upload (11/17/2018 8:38 AM EDT) Anatomical Region Laterality Modality Mammography 11/17/2018 8:38 AM EDT External Provider IMG BI PROCEDURES Final Result documented in this encounter Visit Diagnoses Not on filedocumented in this encounter Care Teams Inset Cutter Relationship Specialty Start Date End Date Maranda Ann APRN [address] [place] [address] PCP - General 08/18/24 documented as of this encounter
--- OUTSIDE RECORDS SUMMARY | 2025-02-15 09:51 | XMS_ITS | Encounter Summary ---
Author Organization [facility] Address [address] [place] [address] Care Team Providers Care Periodicals Clerk Name Role Phone MarissaMaranda gr Audelia LÓPEZ Primary Care Provider +1- [phone] Encounter Details Date Type Department Care Team (Late Contact Info) Description 02/08/2022 Orders Only External Location 800 [place] [address] Estrella Crane MD [address] [facility] [address] [place], [place] [id number] Social History Tobacco Use Types Packs/Day Years [...] [facility] [address] 800 [place] [address] 04/19/2025 9:30 AM EST Office Visit [facility] 740 [facility], 2nd [place] [address] Lola Orozco APRN 800 [facility] Valentina Zhouson [facility] 134 [place] [address] documented as of this encounter Procedures Procedure Name Priority Date/Time Associated Diagnosis Comments MAMMOGRAPHY OUTSIDE IMAGES UPLOAD 02/08/2022 10:49 AM EDT documented in this encounter Results * Mammography Outside Images Upload (02/08/2022 10:49 AM EDT) Anatomical Region Laterality Modality Mammography 02/08/2022 10:4 9 AM EDT Estrella Crane MD IMG BI PROCEDURES Final Result documented in this encounter Visit Diagnoses Not on filedocumented in this encounter Care Teams Periodicals Clerk Relationship Specialty Start Date End Date Maranda Ann APRN [facility]0 [place] [address] PCP - General 08/18/24 documented as of this encounter
--- OUTSIDE RECORDS SUMMARY | 2025-02-15 09:51 | XMS_ITS | Encounter Summary ---
Author Organization [facility] Address [address] [place] [address] Care Team Providers Care Body And Fender Worker Name Role Phone MarissaMaranda gr Audelia LÓPEZ Primary Care Provider +1- [phone] Encounter Details Date Type Department Care Team (Late Contact Info) Description 06/28/2009 Orders Only External Location 800 [place] [address] Provider, External Social History Tobacco [...] [facility] [place] [address] Valentina Vazquez [facility] 800 [place] [address] 04/19/2025 9:30 AM EST Office Visit [facility] [address] [facility], 2nd [place] [address] Lola Orozco APRN [address] [facility] [address] [address] documented as of this encounter Procedures Procedure Name Priority Date/Time Associated Diagnosis Comments MAMMOGRAPHY OUTSIDE IMAGES UPLOAD 06/28/2009 8:41 AM EST documented in this encounter Results * Mammography Outside Images Upload (06/28/2009 8:41 AM EST) Anatomical Region Laterality Modality Mammography 06/28/2009 8:41 AM EST us External Provider IMG BI PROCEDURES Final Result documented in this encounter Visit Diagnoses Not on filedocumented in this encounter Care Teams Body And Fender Worker Relationship Specialty Start Date End Date Maranda Ann APRN [address] [place] [address] PCP - General 08/18/24 documented as of this encounter
--- OUTSIDE RECORDS SUMMARY | 2025-02-15 09:51 | XMS_ITS | Encounter Summary ---
Author Organization [facility] Address [address] [place] [address] Care Team Providers Care Cribber Name Role Phone MarissaMaranda gr Audelia LÓPEZ Primary Care Provider +1- [phone] Encounter Details Date Type Department Care Team (Late Contact Info) Description 07/19/2009 Orders Only External Location 800 [place] [address] Provider, External Social History Tobacco [...] [facility] [place] [address] Valent[address] Vazquez [facility] 800 [place] [address] 04/19/2025 9:30 AM EST Office Visit [facility] 7[address] [facility], 2nd [place] [address] Lola Orozco APRN 800 [facility] [address] [address] documented as of this encounter Procedures Procedure Name Priority Date/Time Associated Diagnosis Comments MAMMOGRAPHY OUTSIDE IMAGES UPLOAD 07/19/2009 8:41 AM EST documented in this encounter Results * Mammography Outside Images Upload (07/19/2009 8:41 AM EST) Anatomical Region Laterality Modality Mammography 07/19/2009 8:41 AM EST us External Provider IMG BI PROCEDURES Final Result documented in this encounter Visit Diagnoses Not on filedocumented in this encounter Care Teams Cribber Relationship Specialty Start Date End Date Maranda Ann APRN [address] [place] [address] PCP - General 08/18/24 documented as of this encounter
--- OUTSIDE RECORDS SUMMARY | 2025-02-15 09:51 | XMS_ITS | Patient Health Record ---
Author Organization [facility]ON Address [address] [place] [address] Care Team Providers Care Psychology Teacher Name Role Phone Marissa Cheo Primary Care Provider CHEO ANN Unavailable Unavaila ble Migration, Provider Unavailable Unavailable Allergies No Known Allergies Results Component Value Reference Range Notes Ultrasound : Breast, Right Reviewed date:07/30/2024 09:44:54 AM Interpretation: Performing Lab: Notes/Report: Ultrasound : Breast, Right Reviewed date:07/30/2024 09:44:54 AM Interpretation: Performing Lab: Notes/Report: Mammogram: Additional/ Magni fy views Reviewed date:07/30/2024 11:21:55 AM Interpretation: Performing Lab: Notes/Report: LIPID PANEL, STANDARD (7600) Reviewed date:07/15/2024 04:24:52 PM Interpretation: Performing Lab:CB, [facility] [id number] [employer], [facility] [id number] John Youssef Notes/Report: NON-FASTING; NON-FASTING; NON-FASTING CHOLESTEROL, TOTAL 214 <200 mg/dL HDL CHOLESTEROL 75 > OR = 50 mg/dL TRIGLYCERIDES 145 <150 mg/dL LDL-CHOLESTEROL 113 Reference range: <100 Desirable range <100 mg/dL for primary prevention; <70 mg/dL for patients with CHD or diabetic patients with > or = 2 CHD risk factors. LDL-C is now calculated using the Claude calculation, which is a validated novel method providing better accuracy than the Friedewald equation in the estimation of LDL-C. Bran YOUNGER et al. PAPITO. 2013;310(19): 4019-6300 (http://education.[employer]tainment [employer]ises.com/faq/STN763) CHOL/HDLC RATIO 2.9 <5.0 (calc) NON HDL CHOLESTEROL 139 <130 mg/dL (calc) For patients with diabetes plus 1 major ASCVD risk factor, treating to a non-HDL-C goal of <100 mg/dL (LDL-C of <70 mg/dL) is considered a therapeutic option. COMPREHENSIVE METABOLIC PANE (00733) Reviewed date:07/15/2024 04:24:52 PM Interpretation: Performing Lab:HOLLI, [facility] [id number] [employer], [id number] John Youssef Notes/Report: NON-FASTING; NON-FASTING; NON-FASTING GLUCOSE 88 65-99 mg/dL Fasting reference interval UREA NITROGEN (BUN) 17 7-25 mg/dL CREATININE 0.86 0.60-1.00 mg/dL EGFR 72 > OR = 60 mL/min/1.73m2 BUN/CREATININE RATIO SEE NOTE: 6-22 (calc) Not Reported: BUN and Creatinine are within reference range. SODIUM 143 135-146 mmol/L POTASSIUM 4.5 3.5-5.3 mmol/L CHLORIDE 106 98-110 mmol/L CARBON DIOXIDE 28 20-32 mmol/L CALCIUM 9.6 8.6-10.4 mg/dL PROTEIN, TOTAL 6.5 6.1-8.1 g/dL ALBUMIN 4.3 3.6-5.1 g/dL GLOBULIN 2.2 1.9-3.7 g/dL (calc) ALBUMIN/GLOBULIN RATIO 2.0 1.0-2.5 (calc) BILIRUBIN, TOTAL 0.5 0.2-1.2 mg/dL ALKALINE PHOSPHATASE 65 37-153 U/L AST 21 10-35 U/L ALT 18 6-29 U/L HEMOGLOBIN A1c (496) Reviewed date:07/15/2024 04:24:52 PM Interpretation: Performing Lab:HOLLI, [facility] [id number] [employer], [id number] John Youssef Notes/Report: NON-FASTING; NON-FASTING; NON-FASTING HEMOGLOBIN A1c 5.8 <5.7 % of total Hgb For someone without known diabetes, a hemoglobin A1c value between 5.7% and 6.4% is consistent with prediabetes and should be confirmed with a follow-up test. For someone with known diabetes, a value <7% indicates that their diabetes is well controlled. A1c targets should be individualized based on duration of diabetes, age, comorbid conditions, and other considerations. This assay result is consistent with an increased risk of diabetes. Currently, no consensus exists regarding use of hemoglobin A1c for diagnosis of diabetes for children. Breast Biopsy, Ultrasound Gu ided, Right Breast Reviewed date:08/17/2024 05:38:53 PM Interpretation: Performing Lab: Notes/Report: DEXA Hip and Spine - Screeni ng Reviewed date:07/27/2024 02:32:24 PM Interpretation: Performing Lab: Notes/Report: Mammogram: Screening Reviewed date:07/16/2024 02:46:10 PM Interpretation: Performing Lab: Notes/Report: Reason For Referral Reason invasive lobular car cinoma from breast biopsy Referral Organization [facility] Referring Provider First Name Cheo Referring Provider Last Name Marissa Referring Provider [facility] Referred Organization [facility] Referrals Referred Address [address] [place], [place],[address], Referred Provider Specialty Oncology General Notes Courtney Henderson 2024 11:53:30 AM >Sent to [facility] and - both marked UrgentSantiago Nickie 08/17/2024 09:34:10 AM >Scheduled 08/27/2024 8:30 AM ALCIRA MAURER [facility] Dianna Villasenor MD New Patient Referral Priority Urgent Referral Appointment Date 08/27/2024 Reason invasive lobular car cinoma from breast biopsy Courtney see notes Referral Organization [facility] Referring Provider First Name Cheo Referring Provider Last Name Marissa Referring Provider [facility] General Notes Lety Kohli 06/2024 02:40:55 PM > [facility] called and asked for referral to be put in with surgeon- I faxed- just wanted to let you know. I told Adelaida Referral Priority Routine Medications Medication SIG (Take, Route, Frequency, Duration) Notes Start Date End Date Status Lisinopril 10 MG 1 tab(s) orally once a day; Duration: 90 days Active Venlafaxine HCl ER 75 MG 1 cap(s) orally once a day; Duration: 90 days Active Immunizations Vaccine Route Administration Date Status Comme nts Pneumovax 23 IM Intramuscular 02/05/2022 Administered Arexvy IM Intramuscular 05/28/2023 Administered Social History Tobacco Use: Social History Observation Description Date Details (start date - stop date) Never Smoker NA - NA Smoking: Question Answer Notes Are you a: nonsmoker Problems Problem Type SNOMED Code ICD Code Onset Dates Problem Status W/U Status Risk Notes Problem Overweight (090688392) Overweight (E66.3) Active confirmed Problem Essential hypertension (72126055) HTN (hypertension), benign (I10) Active confirmed Problem Hyperlipidemia (01305147) Other and unspecified hyperlipidemia (E78.5) Active confirmed Problem Generalized anxiety disorder (26954315) PIERRE (generalized anxiety disorder) (F41.1) Active confirmed Vital Signs Heart Rate 88 /min 06/29/2024 Temperature 98 degrees Fahrenheit 06/29/2024 Blood pressure diastolic 80 mm Hg 06/29/2024 Height 5 ft 4 in in 06/29/2024 Blood pressure systolic 118 mm Hg 06/29/2024 Weight 167 lbs 06/29/2024 BMI 28.66 kg/m2 06/29/2024 Encounters Encounter Location Date Provider Diagnosis [facility] [address] [place], [facility] [address] 07/13/2024 Cheo Marissa [facility] [address] [place], [facility] [address] 08/22/2024 Provider Migration HTN (hypertension), benign I10 and PIERRE (generalized anxiety disorder) F41.1 [facility] [address] [facility] [address] [place] [address] 06/29/2024 Cheo Ann HTN (hypertension), benign I10 ; Medicare annual wellness visit, subsequent Z00.00 ; Hyperglycemia R73.9 ; PIERRE (generalized anxiety disorder) F41.1 ; Other and unspecified hyperlipidemia E78.5 ; Overweight E66.3 ; BMI 28.0-28.9,adult Z68.28 ; Visit for screening mammogram Z12.31 and Asymptomatic postmenopausal state Z78.0 [facility] [address] [place] [address] 06/29/2024 Cheo Ann [facility] [address] [place] [address] 07/16/2024 Cheo Ann Breast mass, right N63.10 and Abnormal mammogram R92.8 [facility] [address] [place] [address] 07/29/2024 Cheo Ann Abnormal mammogram o f right breast R92.8 and Breast mass, right N63.10 [facility] [address] [place] [address] 08/13/2024 Cheo Ann [facility] [address] [address] 08/19/2024 Cheo Ann Assessments Encounter Date Diagnosis (ICD Code) Assessment Notes Treatment Notes Treatment Clinical Notes Section Notes 06/29/2024 HTN (hypertension), benign (ICD-10 - I10) well controlled on lisinopril 06/29/2024 Medicare annual wellness visit, subsequent (ICD-10 - Z00.00) Up-to-date on wellness recommendations as noted, monitoring labs recommended. Continue efforts to maintain weight loss with healthy diet and regular activity. 07/16/2024 Breast mass, right (ICD-10 - N63.10) 07/29/2024 Abnormal mammogram of right breast (ICD-10 - R92.8) 08/22/2024 HTN (hypertension), benign (ICD-10 - I10) 07/29/2024 Breast mass, right (ICD-10 - N63.10) 07/16/2024 Abnormal mammogram (ICD-10 - R92.8) 06/29/2024 Hyperglycemia (ICD-10 - R73.9) 06/29/2024 PIERRE (generalized anxiety disorder) (ICD-10 - F41.1) continue venlafaxine 08/22/2024 PIERRE (generalized anxiety disorder) (ICD-10 - F41.1) 06/29/2024 Other and unspecified hyperlipidemia (ICD-10 - E78.5) goal LDL < 100 06/29/2024 Overweight (ICD-10 - E66.3) complicates care, encouraged regular exercise and heart healthy diet with goal of gradual weight loss 06/29/2024 BMI 28.0-28.9,adult (ICD-10 - Z68.28) 06/29/2024 Visit for screening mammogram (ICD-10 - Z12.31) 06/29/2024 Asymptomatic postmenopausal state (ICD-10 - Z78.0) 06/29/2024 Other Plan Of Treatment Pending Test Test Name Order Date Physical Therapy 02/05/2022 Insurance Providers Payer Name Payer Address Payer Phone Subscriber Number Group Number Insured Name Patient Relationship to Insured Coverage Start Date Coverage End Date [place] [address] [place] [address] [id number] Rosana Rojas Self - patient is the insured [facility] [address] [place] [address] [id number] Rosana Rojas Self - patient is the insured [employer] [address] [place] [address] [address] [place] [address] ACL Rosana Rojas Self - patient is the insured Medical (General) History Medical History History ICD Code HTN Anxiety treated with venlafaxine Surgical History Surgery Date(Month/Year) Appendectomy 1970 cholecystectomy 2019 T & A 1959 Hospitalization History Reason Date(Month/Year) childbirth x 3 all above surgeries
--- OUTSIDE RECORDS SUMMARY | 2025-02-15 09:51 | XMS_ITS | Encounter Summary ---
Author Organization [facility] Address [address] [place] [address] Care Team Providers Care Ripper Operator Name Role Phone MarissaMaranda gr Audelia LÓPEZ Primary Care Provider +1- [phone] Encounter Details Date Type Department Care Team (Late Contact Info) Description 03/07/2011 Orders Only External Location 800 [place] [address] Provider, External Social History Tobacco [...] [facility] [place] [address] Valentina Vaz[address] [facility] 800 [place] [address] 04/19/2025 9:30 AM EST Office Visit [facility] [address] [facility], 2nd [place] [address] Lola Orozco APRN 800 [facility] [address] [address] documented as of this encounter Procedures Procedure Name Priority Date/Time Associated Diagnosis Comments MAMMOGRAPHY OUTSIDE IMAGES UPLOAD 03/07/2011 8:12 AM EDT documented in this encounter Results * Mammography Outside Images Upload (03/07/2011 8:12 AM EDT) Anatomical Region Laterality Modality Mammography 03/07/2011 8:12 AM EDT us External Provider IMG BI PROCEDURES Final Result documented in this encounter Visit Diagnoses Not on filedocumented in this encounter Care Teams Ripper Operator Relationship Specialty Start Date End Date Maranda Ann APRN [address] [place] [address] PCP - General 08/18/24 documented as of this encounter
--- OUTSIDE RECORDS SUMMARY | 2025-02-15 09:51 | XMS_ITS | Encounter Summary ---
Author Organization [facility] Address [address] [place] [address] Care Team Providers Care Graduating Machine Operator Name Role Phone Maranda Ann PART TIME FLEXIBLE CLERK Primary Care Provider +1- [phone] Encounter Details Date Type Department Care Team (Late st Contact Info) Description 08/10/2024 Orders Only External Location 800 [place] [address] Maranda Ann, PART TIME FLEXIBLE CLERK [facility] [facility] [place], [place] [address] Social History Tobacco Use Types Packs/Day Years [...] [facility] [place] [address] [address] 800 [place] [address] 04/19/2025 9:30 AM EST Office Visit [facility] [address] [facility], 2nd [place] [address] Lola Orozco, PART TIME FLEXIBLE CLERK [address] [facility] Valentina Zhouson [address] [address] documented as of this encounter Procedures Procedure Name Priority Date/Time Associated Diagnosis Comments US BREAST OUTSIDE IMAGES UPLOAD 08/10/2024 9:46 AM EDT documented in this encounter Results * US Breast Imaging Outside Images Upload (08/10/2024 9:46 AM EDT) Anatomical Region Laterality Modality Mammography 08/10/2024 9:46 AM EDT Maranda Ann APRN IMG BI PROCEDURES Final Re sult documented in this encounter Visit Diagnoses Not on filedocumented in this encounter Care Teams Graduating Machine Operator Relationship Specialty Start Date End Date Maranda Ann APRN [facility] [place] [address] PCP - General 08/18/24 documented as of this encounter
--- OUTSIDE RECORDS SUMMARY | 2025-02-15 09:51 | XMS_ITS | Clinical Summary ---
Author Organization [facility] Address [address] [place] [address] Care Team Providers Care Integrative Medicine Physician Name Role Phone Maranda Ann APRN Primary Care Provider [phone]- [phone] Allergies No known active allergies Medications lisinopril 10 MG tablet Take 1 tablet by mouth Daily. 8 Active venlafaxine XR (Effexor-XR) 75 MG 24 hr capsule 1 (one) time each day at the same time. Active Multiple Vitamin (multivitamin) capsule Take 1 capsule by mouth daily. Active omega-3 (Fish Oil) 1000 MG capsule Take 1 capsule by mouth 2 times a day with meals. Active acetaminophen (Tylenol) 500 MG tablet Take 2 tablets by mouth every 8 hours. 100 tablet 5 Active ibuprofen 400 MG tablet Take 1 tablet by mouth every 8 hours. 40 tablet 5 Active oxyCODONE (Roxicodone) 5 MG immediate release tablet Take 1 tablet by mouth every 6 hours as needed for severe pain. 5 tablet 5 Active senna-docusate sodium (Senokot-S) 8.6-50 MG tablet Take 1 tablet by mouth daily. Take as long as you are requiring oxycodone 5 tablet 5 Active Active Problems Problem Noted Date Diagnosed Date HTN (hypertension), benign 08/27/2024 PIERRE (generalized anxiety disorder) 08/27/2024 Hyperlipidemia 08/27/2024 Invasive lobular carcinoma of breast in female 0 08/27/2024 Cancer Staging:Clinical stage from 08/27/2024:Stage IA(cT1a, cN0, cM0, G2, ER+, VA+, HER2-) - Signed by Dianna Villasenor MD on 09/06/2024 Pathologic stage from 09/14/2024:Stage IA(pT1a, pN0, cM0, G2, ER+, VA+, HER2-) - Unsigned Family History Medical History Relation Name Comments Brain cancer Brother glioblastoma Cousin 1 Bone cancer Cousin 2 Hyperlipidemia Father Lung cancer Father Migraines Father Anxiety disorder Mother Arthritis Mother Hypertension Mother Joint pain/problems Mother Uterine cancer Mother Cancer Mother's Sister Relation Name Status Comments Brother Cousin 1 Alive Cousin 2 Alive Father Mother Mother's Sister Social History Tobacco Use Types Packs/Day Years Used Date Smoking Tobacco: Never Passive Smoke Exposure: Never Smokeless Tobacco: Never Alcohol Use Standard Drinks/Week Comments Yes 2 (1 standard drink = 0.6 oz pur e alcohol) PHQ-2 Answer Date Recorded Patient Health Questionnaire-2 Score 0 08/27/2024 PHQ-9 Answer Date Recorded Patient Health Questionnaire-9 Score 0 08/27/2024 Comments No Sex and Gender Information Value Date Recorded Sex Assigned at Not on file Legal Sex Female 8:01 PM EDT Gender Identity Not on file Sexual Orientation Not on file Last Filed Vital Signs Vital Sign Reading Time Taken Comments Blood Pressure 117/76 10/08/2024 3:50 PM EDT Pulse 87 10/08/2024 3:50 PM EDT Temperature 36.4 C (97.6 F) 10/08/2024 3:50 PM EDT Respiratory Rate 16 10/08/2024 3:50 PM EDT Oxygen Saturation 94% 10/08/2024 3:50 PM EDT Inhaled Oxygen Concentration - - Weight 73.5 kg (162 lb 0.6 oz) 10/08/2024 3:50 P M EDT Height 165.1 cm (5' 5 ) 10/08/2024 3:50 PM EDT Body Mass Index 26.96 10/08/2024 3:50 PM EDT Plan of Treatment Upcoming Encounters Date Type Department Care Team (Late st Contact Info) Description 04/19/2025 8:30 AM EST Appointment [facility] [address] [id number] 04/19/2025 9:30 AM EST Office Visit [facility] [address] [place] [address] Lola Orozco, PHYSICAL TESTING SUPERVISOR [address] [place] [address] Health Maintenance Due Date Last Done Comments [facility]-Bone Density Scan 1952 [facility]-Diabetes: Hemoglobin A1C 1952 [facility]-Hepatitis C Screening 1950 [facility]-Medicare Annual Wellness (AWV) 1950 [facility]-Infant/Child/Adol SDOH Screenings 1950 [id number] Vaccine (#1) 1957 Diabetes: Dental Exam 1962 [facility]- SDOH Screenings 1970 [facility]-Adult SDOH Screenings 1970 [facility]-DTaP,Tdap,and Td Vaccine s (1 - Tdap) 11/02/1971 [facility]-Zoster Vaccines (1 of 2) 11/02/1971 CT Colonography 1997 Colonoscopy 1997 FIT-DNA 1997 FIT 1997 FOBT 1997 Sigmoidoscopy 1997 [facility]-Colorectal Cancer Screening 1997 [facility]-Pneumococcal Vaccine: 50 + Years (2 of 2 - PCV) 02/05/2023 02/05/2022 [facility]-Influenza Vaccine (#1) 2025 [facility]-Depression Screening 08/27/2025 025, 08/27/2024 [facility]-RSV Vaccine: 60+ Years o r (1 - 1-dose 75+ series) 11/02/2027 [facility]-Obesity Intervention Completed 025, 08/27/2024 HPV Vaccines Aged Out No longer eligi ble based on patient's age to complete this topic [facility]-HIB Vaccines Aged Out No longer e ligible based on patient's age to complete this topic [facility]-Hepatitis A Vaccines Aged Out No longer eligible based on patient's age to complete this topic [facility]-IPV Vaccines Aged Out No longer e ligible based on patient's age to complete this topic [facility]-Rotavirus Vaccines Aged Out No lo nger eligible based on patient's age to complete this topic Medical Devices Implanted Type Area Art Consultant Device Identifier Shelf Expiration Date Model / Serial / Lot Marker Smartclip Soft Tiss/Delvry Sys Pnk 7.5cm - [id number] Implanted:Qty: 1 on 09/09/2024 by Malik Booker MD at [facility] Right: Breast [id number] SMARTCLIPL [id number] / / Insurance MEDICARE [facility] Care Teams Integrative Medicine Physician Relationship Specialty Start Date End Date Maranda Ann APRN [address] [facility] [address] [address] PCP - General 08/18/24
--- OUTSIDE RECORDS SUMMARY | 2025-02-15 09:51 | XMS_ITS | Encounter Summary ---
Author Organization [facility] Address [address] [place] [address] Care Team Providers Care Phlebotomist Lab Assistant Name Role Phone MarissaMaranda gr Audelia LÓPEZ Primary Care Provider +1- [phone] Encounter Details Date Type Department Care Team (Late Contact Info) Description 03/11/2012 Orders Only External Location [address] [place] [address] Provider, External Social History Tobacco [...] [facility] [place] [address] [address] [facility] [address] [place] [address] 04/19/2025 9:30 AM EST Office Visit [facility] [address] [facility], [address] [place] [phone] Lola Orozco APRN [address] [facility] [address] [address] documented as of this encounter Procedures Procedure Name Priority Date/Time Associated Diagnosis Comments MAMMOGRAPHY OUTSIDE IMAGES UPLOAD 03/11/2012 4:09 PM EDT documented in this encounter Results * Mammography Outside Images Upload (03/11/2012 4:09 PM EDT) Anatomical Region Laterality Modality Mammography 03/11/2012 4:09 PM EDT External Provider IMG BI PROCEDURES Final Result documented in this encounter Visit Diagnoses Not on filedocumented in this encounter Care Teams Phlebotomist Lab Assistant Relationship Specialty Start Date End Date Maranda Ann APRN [address] [place] [address] PCP - General 08/18/24 documented as of this encounter
--- OUTSIDE RECORDS SUMMARY | 2025-02-15 09:51 | XMS_ITS | Encounter Summary ---
Author Organization [facility] Address [address] [place] [address] Care Team Providers Care Business Analyst Intern Name Role Phone Maranda Ann AREA FIELD WORKER Primary Care Provider +1- [phone] Encounter Details Date Type Department Care Team (Late st Contact Info) Description 08/10/2024 Orders Only External Location [address] [place] [address] Maranda Ann, AREA FIELD WORKER [address] [facility] [address] [place], [place] [id number] Social History Tobacco Use Types Packs/Day Years [...] [facility] [place] [address] [address] [place] [address] 04/19/2025 9:30 AM EST Office Visit [facility] [address] [facility], [address] [place] [phone] Lola Orozco, AREA FIELD WORKER [address] [facility] Valentina Zhouson [address] [address] documented as of this encounter Procedures Procedure Name Priority Date/Time Associated Diagnosis Comments MAMMOGRAPHY OUTSIDE IMAGES UPLOAD 08/10/2024 10:38 AM EDT documented in this encounter Results * Mammography Outside Images Upload (08/10/2024 10:38 AM EDT) Anatomical Region Laterality Modality Mammography 08/10/2024 10:3 8 AM EDT Maranda Ann APRN IMG BI PROCEDURES Final Re sult documented in this encounter Visit Diagnoses Not on filedocumented in this encounter Care Teams Business Analyst Intern Relationship Specialty Start Date End Date Maranda Ann APRN [facility] [address] [place] [address] PCP - General 08/18/24 documented as of this encounter
--- NOTE | 2025-02-15 10:00 | MM_ITS ---
PROCEDURE INFORMATION: Exam: MG Right Diagnostic Breast Tomosynthesis Exam date and time: 02/15/2025 10:05 AM Age: 74 years old Clinical indication: Short-term radiographic followup; Right breast; Additional info: History of breast cancer TECHNIQUE: Imaging protocol: Right Diagnostic tomosynthesis and 2D mammography including computer-aided detection (CAD) when performed. Unilateral or bilateral exam. COMPARISON: 1. MG MM CLIP PLACEMENT RT 08/10/2024 10:38 AM 2. MG MM DIG MAMM DX UNILAT RT CAD 07/28/2024 1:53 PM FINDINGS: MAMMOGRAPHY: Breast composition: There are scattered areas of fibroglandular density. Breast mammogram findings: Post lumpectomy clips are seen in the inferior posterior aspect of the right breast. There is a biopsy tissue marker in the upper-outer quadrant of the right breast, anterior depth. There is no surrounding suspicious mass or calcifications. Consider additional evaluation with ultrasound. IMPRESSION: 1. Post lumpectomy changes and post biopsy changes in the right breast, with no new or suspicious finding. 2. Consider additional ultrasound imaging of the biopsied site at 10 o'clock. ASSESSMENT: BI-RADS Category 0: Incomplete- Need Additional Imaging Evaluation.
== END 2025-02-15 23:59 | disposition home or self-care (01) ==
LOC: RAD 09:49
PROVIDERS: PCP Nurse Practitioner Family; Visit Provider Internal Medicine Medical Oncology
DX: R92.321 Mammographic fibroglandular density, right breast (principal); Z85.3 Personal history of malignant neoplasm of breast; Z90.11 Acquired absence of right breast and nipple
CPT/HCPCS: 77061; 77065; G0279